=== PATIENT | female | born 2000 | race Two or more races ===

== ENCOUNTER 2020-04-13 19:39 | Emergency (ER) | payer MEDICAID, OTHER ==
[~2020-04-13] VITALS: Ht 170.2 cm; Wt 88.9 kg
[2020-04-13 22:31] VITALS: BP 126/74
== END 2020-04-13 22:57 | disposition home or self-care (01) ==
LOC: ER 19:39
DX: M62.838 Other muscle spasm (principal); M54.2 Cervicalgia
CPT/HCPCS: 72040

== ENCOUNTER → 2020-11-16 | Outpatient (CLI) | payer OTHER | END | disposition home or self-care (01) | LOC: LAB 16:18 | PROVIDERS: ATTEND Physician Assistant | DX: Z20.9 Contact with and (suspected) exposure to unspecified communicable disease (principal) | CPT/HCPCS: 86787 ==

== ENCOUNTER → 2020-11-25 | Outpatient (CLI) | payer OTHER | END | disposition home or self-care (01) | LOC: LAB 14:03 | PROVIDERS: ATTEND Nurse Practitioner Family | DX: Z20.9 Contact with and (suspected) exposure to unspecified communicable disease (principal) | CPT/HCPCS: 36415; 86706; 86735; 86762; 86765 ==